=== PATIENT | male | born 1965 | race Hispanic/Latino ===

== ENCOUNTER 2019-09-04 10:30 | Inpatient (IN) | payer BC ==
--- NOTE | 2019-09-04 11:14 | CT ---
CT BRAIN WITHOUT CONTRAST: HISTORY: Headache FINDINGS: No evidence of acute infarct, hemorrhage, midline shift or abnormal extra-axial fluid collections is seen. The ventricular size is appropriate and the basilar cisterns are patent. The bony calvarium is intact. The visualized paranasal sinuses and mastoid air cells are well aerated. IMPRESSION: No CT evidence of acute intracranial process.
[2019-09-04] MEDS ORDERED: Morphine 4 MG/ML VIAL ONE (11:19)
[2019-09-04] MEDS ORDERED: Ketorolac Tromethamine 30 MG/ML VIAL ONE (11:19)
--- NOTE | 2019-09-04 11:19 | CT ---
CT CERVICAL SPINE WITH CORONAL AND SAGITTAL REFORMATIONS AND NO IV CONTRAST: HISTORY: neck pain FINDINGS: Mild degenerative changes are present. There is loss of cervical lordosis with straightening of the cervical spine. No fracture, subluxation or facet malalignment is identified. No prevertebral soft tissue swelling is apparent. The visualized lung apices are unremarkable. IMPRESSION: No CT evidence for fracture or subluxation.
[2019-09-04 11:36] LABS: #Basophils 0.1 thou/uL (0.0-0.2); #Monocytes 0.7 thou/uL (0.11-0.59); #Neutrophils 11.7 thou/uL (1.40-6.50); %Basophils 0.5 % (0.0-1.0); %Eosinophils 0.3 % (0.0-10.0); %Lymphocytes 7.4 % (21.0-51.0); %Monocytes 4.9 % (0.0-10.0); Hemoglobin 15.4 g/dL (14.0-18.0); Mean Corpuscular HGB CONC 34.4 g/dL (32.0-36.0); Mean Corpuscular Hemoglobin 29.2 pg (27.0-31.0); Mean Corpuscular Volume 84.8 fL (78.0-98.0); Mean Platelet Volume 8.4 fL (7.4-10.4); Platelet Count 325 thou/uL (130-400); Red Blood Cell (RBC) Count 5.27 mill/uL (4.70-6.10); White Blood Cell (WBC) Count 13.4 thou/uL (4.8-10.8)
[2019-09-04 12:19] LABS: ALT (SGPT) 10 U/L (8-55); AST (SGOT) 11 U/L (5-34); Albumin 4.3 g/dL (3.5-5.0); Alkaline Phosphatase 152 U/L (40-110); Anion Gap 24 mmol/L (10-20); BUN (Urea Nitrogen) 11 mg/dL (8.4-25.7); Bilirubin, Total 0.3 mg/dL (0.2-1.2); Calc. Creatinine Clearance 0 mL/min (70-130); Calcium 9.4 mg/dL (7.8-10.44); Chloride 102 mmol/L (98-107); Estimated GFR-MDRD 50; Globulin 4.4 g/dL (2.4-3.5); Glucose 473 mg/dL (70-105); Potassium 3.7 mmol/L (3.5-5.1); Protein, Total 8.7 g/dL (6.0-8.3); Sodium 131 mmol/L (136-145)
[2019-09-04 12:30] LABS: Carbon Dioxide 9 mmol/L (22-29)
--- NOTE | 2019-09-04 12:51 | RAD ---
XR Chest 1 View Portable HISTORY: Altered mental status and headache COMPARISON: None FINDINGS: The heart size is normal. The lungs are well expanded without focal areas of consolidation, pneumothorax or pleural effusions. IMPRESSION: No radiographic evidence of acute cardiopulmonary process.
[2019-09-04] MEDS ORDERED: Insulin Regular 300 UNITS/3 ML VIAL ONE (13:02)
[2019-09-04 13:13] LABS: Magnesium 1.8 mg/dL (1.6-2.6); Phosphorus 2.8 mg/dL (2.3-4.7)
[2019-09-04 13:28] LABS: Base Excess-Venous -19.3 mmol/L (-2.0 to 3.0); CO2 Tension (PvCO2) 28.4 mmHg (40.0-50.0); Chloride 104 mmol/L (98-107); Hemoglobin - Calc 15.8 g/dL (14.0-18.0); Potassium 3.8 mmol/L (3.5-5.1); Sodium 129 mmol/L (138-145); T. Carbon Dioxide 9.8 mmol/L (22.0-28.0); vO2 Saturation-calc 76.5 % (60.0-85.0)
[2019-09-04 13:28] LABS: Bacteria/HPF None Seen HPF (None Seen); Bilirubin Negative (Negative); Blood, Urine 1+ (Negative); Clarity Clear (Clear); Glucose, Urine (Dipstick) Greater than 1000 mg/dL (Negative); Leukocyte Negative Leu/uL (Negative); Nitrite Negative (Negative); Protein, Urine (Dipstick) 70 mg/dL (Neg-Trace); Squamous Epithelial 0-3 HPF (0-3); Urobilinogen Normal mg/dL (Less than 2); WBC/HPF 0-3 HPF (0-3)
[2019-09-04] MEDS ORDERED: D5 1/2 NS w/20 mEq KCL 0 ML ONE (14:03)
[2019-09-04] MEDS ORDERED: Insulin Regular 100 units/100 ml in NS IVPB SCH (14:15)
[2019-09-04] MEDS ORDERED: NS 0.9% w/ 20 MEQ KCL 1,000 ML IV SCH (14:15)
[2019-09-04] MEDS ORDERED: CCU Electrolyte Replacement 1 EACH IVPB ONE (14:47)
[2019-09-04] MEDS ORDERED: Sodium Chloride 0.9% 1,000 ML IV PRN ×2 (14:47)
[2019-09-04] MEDS ORDERED: NS 0.9% w/ 20 MEQ KCL 1,000 ML IV PRN ×2 (14:47)
[2019-09-04] MEDS ORDERED: Dextrose 5 %-0.45 % NaCl 1,000 ML IV PRN (14:47)
[2019-09-04] MEDS ORDERED: Morphine 4 MG/ML VIAL SLOW IVP PRN (14:55)
[2019-09-04] MEDS ORDERED: Morphine 2 MG/ML SYRINGE SLOW IVP PRN (14:55)
[2019-09-04] MEDS ORDERED: HUMULIN R 100 UNITS in Sodium Chloride 0.9% 100 ML IVPB SCH (15:00)
[2019-09-04] MEDS ORDERED: Potassium Chloride 40 MEQ in Sodium Chloride 0.9% 250 ML 250 ML IVPB PRN (15:33)
[2019-09-04] MEDS ORDERED: PHOS-NAK 1 PKT PACK PO PRN ×2 (15:33)
[2019-09-04] MEDS ORDERED: Magnesium Oxide 400 MG TAB PO PRN ×2 (15:33)
[2019-09-04] MEDS ORDERED: CCU ELECTROLYTE REPLACEMENT PROTOCOL FS PRN (15:33)
[2019-09-04] MEDS ORDERED: Potassium Phosphate 12 MMOL in Sodium Chloride 0.9% 250 ML 250 ML IV PRN (15:33)
[2019-09-04] MEDS ORDERED: Magnesium 2 GM/50 ML 2 GM in Premix Bag 1 BAG IVPB PRN (15:33)
[2019-09-04] MEDS ORDERED: Potassium Phosphate 9 MMOL in Sodium Chloride 0.9% 100 ML IVPB PRN (15:33)
[2019-09-04] MEDS ORDERED: Potassium Chloride 40 MEQ in Premix Bag 1 BAG IVPB PRN (15:33)
[2019-09-04] MEDS ORDERED: Potassium Phosphate 15 MMOL in Sodium Chloride 0.9% 250 ML 250 ML IV PRN (15:33)
--- NOTE | 2019-09-04 15:54 | HP ---
PRIMARY CARE PROVIDER: Dr. Burgess. CHIEF COMPLAINT: Pain. HISTORY OF PRESENT ILLNESS: This is a 54-year-old male with history of type 2 diabetes, on insulin therapy; dyslipidemia, who presents to the emergency room complaining of pain in his neck. He reports it has been present for approximately one week and was worse last night. He saw Dr. Verde in the outpatient setting. He was concerned about a pinched nerve and prescribed a muscle relaxer and Medrol steroid pack. The patient is taking these medications along with Tylenol for headache and denies any change in his pain. In the emergency room, the patient found to be in DKA. He reports that his blood sugars at home have been in the 300s and he missed his insulin over the past 3 days. He complains of polyuria, dysuria, weakness, and dry mouth. However, these were not his reasons for presentation today. He denies any prior history of hospitalization for diabetes, and states that he did not take his insulin, because sometimes it makes him feel poorly. In the emergency room, the patient found to be in DKA. He received morphine 8 mg IV, Toradol 30 mg IV, 2 L of normal saline, 10 units of subcutaneous insulin, and started on an insulin drip. In addition, he was ordered some more IV fluids, and the hospitalist called for admission. ALLERGIES: NO KNOWN DRUG ALLERGIES. PAST MEDICAL HISTORY: 1. Type 2 diabetes. 2. Dyslipidemia. PAST SURGICAL HISTORY: Left eye. MEDICATIONS: The patient reports taking; 1. Insulin unknown type, 15 units twice a day, however, none over the past 3 days. 2. Metformin extended release two tablets b.i.d. 3. Cholesterol medicine, unknown name. 4. Tylenol as needed. 5. Cyclobenzaprine 10 mg at bedtime. 6. Invokana, unknown dose. 7. Trulicity, unknown dose injected weekly. SOCIAL HISTORY: The patient drinks alcohol 2 to 3 drinks per week, denies any tobacco. Lives with his , who is his surrogate decision maker and he is a full code. FAMILY HISTORY: Mom of heart problems and cancer. REVIEW OF SYSTEMS: Positive for polyuria, dysuria, weakness, and dry mouth. Negative for blurry vision, fevers, chills, nausea, vomiting, abdominal pain, chest pain, or shortness of breath. All remaining review of systems are reviewed and negative. PHYSICAL EXAMINATION: VITAL SIGNS: Blood pressure 144/88, it was 180/102 on admission, pulse 106 (up to 118 on admission), respirations 19, saturation 99% on room air, temp 97.7. GENERAL: Awake, alert, responsive, in no apparent distress. Able to speak in full sentences. HEENT: Pupils are equal and round. Oral mucosa is pink and dry. NECK: Supple. Tenderness to palpation along the right proximal paracervical muscles without any palpable defect, this reproduces symptoms, LYMPHATICS: No palpable cervical or supraclavicular lymphadenopathy. LUNGS: Clear to auscultation bilateral with good air movement. No audible wheezing, rhonchi, or rales. HEART: Normal S1, S2. Regular rate and rhythm. Tachycardic. No audible murmurs. ABDOMEN: Soft. Present bowel sounds. Nontender, nondistended. EXTREMITIES: No clubbing, cyanosis, or edema. SKIN: No visible rashes. NEURO: No gross deficits. PSYCH: Appears euthymic. VASCULAR: 2+ dorsalis pedis pulses. [place] FINDINGS AND TEST RESULTS: CBC; 13.4, 15.4, 44.7, 325. VBG; 7.107, pCO2 of 28, PO2 of 54, bicarbonate 9. Renal panel; 131, 3.7, 102, 9, 11, 1.47, 473. Anion gap 20 Corrected serum sodium = 140 LFTs; T bilirubin 0.3, AST 11, ALT 10, alkaline phosphatase 152, total protein 8.7, albumin 4.3. Urinalysis; present protein, glucose, ketones, 4 to 6 red blood cells, negative for leuk esterase, and nitrites. Beta-hydroxybutyrate 7.7. Chest x-ray personally reviewed; no acute cardiopulmonary process. CT of the C-spine; no CT evidence for fracture or subluxation, mild degenerative changes are present. CT of the brain without contrast negative for acute intracranial process. IMPRESSION: 1. Diabetic ketoacidosis in a patient with known type 2 diabetes, and recent steroid use. 2. Neck pain, based on exam and negative imaging consistent with muscle pain. 3. Dyslipidemia, unknown severity. 4. Acute kidney injury secondary to dehydration associated with diabetic ketoacidosis. 5. Pseudohyponatremia PLAN: 1. Inpatient admission as care will require greater than two midnights to fully stabilize the patient. 2. Continuing IV fluid hydration, insulin drip. Anticipate at least overnight, holding all other medications for diabetes. 3. Obtain an accurate medication list. 4. Manage neck pain. We will start a topical lidocaine patch, and continue both oral and IV pain medication as needed. 5. Monitoring electrolytes per the DKA protocol. 6. Transition to a long-acting insulin when the anion gap is closed, it is currently 20. Obtain name/type of home insulin. 7. Monitor renal function, anticipate with volume repletion that this will resolve. 8. DVT prophylaxis. The patient is ambulatory, we will use pneumatic compression devices. 9. GI prophylaxis not indicated. The patient will be written for carbohydrate consistent diet. 10. Code status is full. 11. The patient is at high risk given age, comorbidities, and current presentation. 12. Reviewed the plan of care with the patient and his family, who demonstrated understanding, no questions or further needs at the end of evaluation. Job ID: [id number] [email or web address]
[2019-09-04 16:23] VITALS: BMI 24.6
[2019-09-04 16:30] LABS: Anion Gap 16 mmol/L (10-20); BUN (Urea Nitrogen) 9 mg/dL (8.4-25.7); Calc. Creatinine Clearance 80 mL/min (70-130); Carbon Dioxide 10 mmol/L (22-29); Chloride 110 mmol/L (98-107); Estimated GFR-MDRD 77; Glucose 315 mg/dL (70-105); Potassium 3.7 mmol/L (3.5-5.1); Sodium 132 mmol/L (136-145)
[2019-09-04] MEDS: D5 1/2 NS w/20 mEq KCL 1,000 ML IV PRN ×2 (19:19→23:26)
[2019-09-04 19:42] LABS: Anion Gap 13 mmol/L (10-20); BUN (Urea Nitrogen) 8 mg/dL (8.4-25.7); Calc. Creatinine Clearance 86 mL/min (70-130); Calcium 8.2 mg/dL (7.8-10.44); Carbon Dioxide 14 mmol/L (22-29); Chloride 112 mmol/L (98-107); Estimated GFR-MDRD 83; Glucose 166 mg/dL (70-105); Sodium 136 mmol/L (136-145)
[2019-09-04] MEDS: Atorvastatin Calcium 10 MG TAB PO SCH (20:42)
[2019-09-04] MEDS: Acetaminophen 325 MG TAB PO PRN (20:42)
[2019-09-04] MEDS: Lidocaine 5% Patch TD SCH (21:14)
[2019-09-04] MEDS: Potassium Chloride 20 MEQ TAB PO PRN (23:27)
[2019-09-04 23:36] LABS: Anion Gap 8 mmol/L (10-20); BUN (Urea Nitrogen) 7 mg/dL (8.4-25.7); Calc. Creatinine Clearance 101 mL/min (70-130); Carbon Dioxide 16 mmol/L (22-29); Chloride 111 mmol/L (98-107); Estimated GFR-MDRD Greater than 90; Glucose 188 mg/dL (70-105); Sodium 132 mmol/L (136-145)
[2019-09-05] MEDS ORDERED: Ondansetron ODT 4 MG TAB PO PRN (01:16)
[2019-09-05] MEDS ORDERED: Ondansetron PF 4 MG/2 ML Vial IVP PRN (01:16)
[2019-09-05 03:40] LABS: #Eosinphils 0.1 thou/uL (0.0-0.7); #Lymphocytes 1.4 thou/uL (1.20-3.40); #Monocytes 0.9 thou/uL (0.11-0.59); #Neutrophils 8.3 thou/uL (1.40-6.50); %Basophils 0.3 % (0.0-1.0); %Eosinophils 0.5 % (0.0-10.0); %Lymphocytes 13.3 % (21.0-51.0); %Monocytes 8.8 % (0.0-10.0); %Neutrophils 77.2 % (42.0-75.0); Hemoglobin 11.4 g/dL (14.0-18.0); Mean Corpuscular HGB CONC 35.9 g/dL (32.0-36.0); Mean Corpuscular Hemoglobin 29.8 pg (27.0-31.0); Mean Corpuscular Volume 83.1 fL (78.0-98.0); Mean Platelet Volume 7.9 fL (7.4-10.4); Platelet Count 270 thou/uL (130-400); RBC Distribution Width 10.9 % (11.5-14.5); Red Blood Cell (RBC) Count 3.83 mill/uL (4.70-6.10); White Blood Cell (WBC) Count 10.7 thou/uL (4.8-10.8)
[2019-09-05 04:02] LABS: Albumin 2.8 g/dL (3.5-5.0); Anion Gap 8 mmol/L (10-20); BUN (Urea Nitrogen) 7 mg/dL (8.4-25.7); BUN/Creatinine Ratio 9.59; Calc. Creatinine Clearance 112 mL/min (70-130); Calcium 7.7 mg/dL (7.8-10.44); Carbon Dioxide 16 mmol/L (22-29); Chloride 111 mmol/L (98-107); Estimated GFR-MDRD Greater than 90; Glucose 146 mg/dL (70-105); Magnesium 1.5 mg/dL (1.6-2.6); Potassium 3.2 mmol/L (3.5-5.1); Sodium 132 mmol/L (136-145)
[2019-09-05] MEDS: Potassium Chloride 20 MEQ TAB PO PRN (04:37)
[2019-09-05] MEDS: D5 1/2 NS w/20 mEq KCL 1,000 ML IV PRN ×2 (04:38→09:39)
[2019-09-05] MEDS: Lidocaine Patch Removal 1 EACH TOP SCH (09:23)
[2019-09-05] MEDS: Acetaminophen 325 MG TAB PO PRN (09:23)
[2019-09-05] MEDS ORDERED: Insulin Glargine 20 UNITS in Pre-Filled Syringe 1 EACH SC SCH (10:15)
[2019-09-05] MEDS ORDERED: Dextrose 50% Abboject 50 ML SYRINGE SLOW IVP PRN (12:23)
[2019-09-05] MEDS ORDERED: HumaLOG 300 UNITS/3 ML VIAL SC PRN (12:23)
[2019-09-05] MEDS ORDERED: Dextrose 5% in Water 1,000 ML IV PRN (12:23)
[2019-09-05] MEDS: Sodium Chloride 0.9% 1,000 ML IV SCH ×4 (12:48→23:35)
--- NOTE | 2019-09-05 13:09 | PDOC.HOSPP ---
- Subjective Encounter Date: 09/05/19 Encounter Time: 11:20 Subjective: feels better, no nausea or abd pain had some urinary freq and urgencyx 3 days, none now family at bedside ( and son) - Objective Vital Signs & Weight: Vital Signs (12 hours) Temp Pulse Ox 09/05/19 11:15 98.4 F 09/05/19 08:00 100 09/05/19 07:21 100.0 F H 09/05/19 05:00 98.4 F Weight Weight 148 lb Most Recent Monitor Data Heart Rate from ECG 112 NIBP 147/83 NIBP BP-Mean 104 Respiration from ECG 20 SpO2 100 I&O: 09/04/19 09/05/19 09/06/19 05:59 06:59 06:59 Intake Total 200 Output Total Balance 200 Result Diagrams: 09/05/19 03:18 09/05/19 03:18 Additional Labs: Accuchecks 09/05/19 09/05/19 09/05/19 12:19 11:03 10:13 POC Glucose 232 H 233 H 266 H 09/05/19 09/05/19 09/05/19 09:16 08:14 07:06 POC Glucose 272 H 287 H 240 H 09/05/19 09/05/19 09/05/19 06:15 05:28 04:08 POC Glucose 185 H 194 H 157 H 09/05/19 09/05/19 09/04/19 03:09 00:09 23:12 POC Glucose 147 H 147 H 188 H 09/04/19 09/04/19 09/04/19 22:05 21:17 20:26 POC Glucose 189 H 196 H 181 H 09/04/19 09/04/19 09/04/19 19:21 18:24 17:08 POC Glucose 154 H 178 H 203 H 09/04/19 14:18 POC Glucose 385 H Hospitalist ROS - Medication Medications: Active Medications Generic Name Dose Route Start Last Admin Trade Name Freq PRN Reason Stop Dose Admin Acetaminophen 650 mg 09/04/19 14:47 09/05/19 09:23 Tylenol PO 650 mg Q6H PRN Administration Headache/Fever/Mild Pain (1-3) Atorvastatin Calcium 10 mg 09/04/19 21:00 09/04/19 20:42 Lipitor PO 10 mg HS [place] Administration Sodium Chloride 1,000 mls @ 200 mls/hr 09/05/19 10:15 09/05/19 12:48 Normal Saline 0.9% IV 1,000 mls .Q5H [place] Administration Lidocaine 1 patch 09/04/19 21:00 09/04/19 21:14 Lidoderm 5% Patch TD 1 patch HS [place] Administration Miscellaneous Medication 1 each 09/05/19 09:00 09/05/19 09:23 Lidocaine Patch Removal TOP 1 each 0900 [place] Administration Morphine Sulfate 2 mg 09/04/19 14:55 09/04/19 16:46 Morphine SLOW IVP 2 mg Q4H PRN Administration Moderate Pain (4-6) - Exam General Appearance: awake alert Eye: PERRL, anicteric sclera ENT: no oropharyngeal lesions, moist mucosa Neck: supple, no JVD Heart: RRR, no murmur Respiratory: no wheezes, no rales Gastrointestinal: soft, non-tender, non-distended, normal bowel sounds Extremities: no cyanosis, no edema Neurological: cranial nerve grossly intact, no focal deficits Psychiatric: normal affect, A&O x 3 Hosp A/P (1) DKA, type 2 Code(s): E11.10 - TYPE 2 DIABETES MELLITUS WITH KETOACIDOSIS WITHOUT COMA Status: Acute Qualifiers: Diabetes mellitus intermediate school teacher insulin use: without intermediate school teacher use (2) Moderate dehydration Code(s): E86.0 - DEHYDRATION Status: Acute (3) DM type 2 (diabetes mellitus, type 2) Status: Chronic Qualifiers: Diabetes mellitus intermediate school teacher insulin use: without intermediate school teacher use (4) Dyslipidemia Code(s): E78.5 - HYPERLIPIDEMIA, UNSPECIFIED Status: Chronic (5) Neck pain Code(s): M54.2 - CERVICALGIA Status: Acute - Plan has right lateral neck pain with no radiation started less than 5 days back. 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
[2019-09-05] MEDS: Ibuprofen 200 MG TAB PO SCH ×2 (14:22→20:47)
[2019-09-05] MEDS: metFORMIN 500 MG TAB PO SCH (17:27)
[2019-09-05] MEDS: HumaLOG 300 UNITS/3 ML VIAL SC PRN (17:28)
[2019-09-05] MEDS: Cyclobenzaprine 10 MG TAB PO SCH (20:47)
[2019-09-05] MEDS: Atorvastatin Calcium 10 MG TAB PO SCH (20:47)
[2019-09-05] MEDS: Lidocaine 5% Patch TD SCH (20:49)
[2019-09-05] MEDS: Enoxaparin Sodium 40 MG/0.4 ML SYRINGE SC SCH (21:49)
[2019-09-05] MEDS: Insulin Glargine 10 UNITS in Pre-Filled Syringe 1 EACH SC SCH (21:49)
[2019-09-06] MEDS: Acetaminophen 325 MG TAB PO PRN (00:42)
[2019-09-06] MEDS: HumaLOG 300 UNITS/3 ML VIAL SC PRN ×2 (04:53→13:15)
[2019-09-06] MEDS: Sodium Chloride 0.9% 1,000 ML IV SCH ×4 (04:54→20:08)
[2019-09-06] MEDS: metFORMIN 500 MG TAB PO SCH ×2 (08:05→16:10)
[2019-09-06] MEDS: Ibuprofen 200 MG TAB PO SCH ×3 (08:05→20:10)
[2019-09-06] MEDS: Insulin Glargine 10 UNITS in Pre-Filled Syringe 1 EACH SC SCH (08:06)
[2019-09-06] MEDS: Lidocaine Patch Removal 1 EACH TOP SCH (08:07)
[2019-09-06] MEDS ORDERED: Insulin Glargine 8 UNITS in Pre-Filled Syringe 1 EACH SC SCH (08:45)
[2019-09-06] MEDS ORDERED: Insulin Glargine 18 UNITS in Pre-Filled Syringe 1 EACH SC SCH (09:00)
[2019-09-06 09:19] LABS: Hemoglobin 12.5 g/dL (14.0-18.0); Mean Corpuscular HGB CONC 35.3 g/dL (32.0-36.0); Mean Corpuscular Hemoglobin 29.5 pg (27.0-31.0); Mean Corpuscular Volume 83.4 fL (78.0-98.0); Mean Platelet Volume 7.9 fL (7.4-10.4); Platelet Count 306 thou/uL (130-400); RBC Distribution Width 11.1 % (11.5-14.5); Red Blood Cell (RBC) Count 4.23 mill/uL (4.70-6.10); White Blood Cell (WBC) Count 12.6 thou/uL (4.8-10.8)
[2019-09-06 09:38] LABS: Anion Gap 14 mmol/L (10-20); BUN (Urea Nitrogen) 4 mg/dL (8.4-25.7); Calc. Creatinine Clearance 130 mL/min (70-130); Carbon Dioxide 19 mmol/L (22-29); Chloride 102 mmol/L (98-107); Estimated GFR-MDRD Greater than 90; Glucose 134 mg/dL (70-105); Sodium 132 mmol/L (136-145)
[2019-09-06 09:51] LABS: Potassium 2.7 mmol/L (3.5-5.1)
[2019-09-06] MEDS ORDERED: Potassium Chloride 20 MEQ TAB PO SCH ×2 (10:15→14:00)
[2019-09-06 10:29] LABS: Lymphocytes 10 % (21-51); MDiff Complete? YES; Monocytes 9 % (0-10); Neutrophil 79 % (42-75); Platelet Morphology Comment Appears Adequate; Reactive Lymphocytes 2 % (0-10)
[2019-09-06] MEDS ORDERED: Potassium Chloride 20 MEQ in Premix Bag 1 BAG IVPB SCH (10:45)
[2019-09-06 16:16] LABS: Bilirubin Negative (Negative); Blood, Urine Negative (Negative); Clarity Clear (Clear); Glucose, Urine (Dipstick) Greater than 1000 mg/dL (Negative); Leukocyte Negative Leu/uL (Negative); Nitrite Negative (Negative); Protein, Urine (Dipstick) 10 mg/dL (Neg-Trace); Urobilinogen 3 mg/dL (Less than 2)
[2019-09-06 16:26] LABS: Anion Gap 14 mmol/L (10-20); BUN (Urea Nitrogen) 5 mg/dL (8.4-25.7); Calc. Creatinine Clearance 130 mL/min (70-130); Calcium 8.3 mg/dL (7.8-10.44); Carbon Dioxide 22 mmol/L (22-29); Chloride 101 mmol/L (98-107); Estimated GFR-MDRD Greater than 90; Glucose 175 mg/dL (70-105); Potassium 3.6 mmol/L (3.5-5.1); Sodium 133 mmol/L (136-145)
[2019-09-06] MEDS: Lidocaine 5% Patch TD SCH (20:09)
[2019-09-06] MEDS: Cyclobenzaprine 10 MG TAB PO SCH (20:10)
[2019-09-06] MEDS: Atorvastatin Calcium 10 MG TAB PO SCH (20:10)
[2019-09-06] MEDS: Enoxaparin Sodium 40 MG/0.4 ML SYRINGE SC SCH (20:11)
[2019-09-06] MEDS: Insulin Glargine 18 UNITS in Pre-Filled Syringe 1 EACH SC SCH (20:13)
--- NOTE | 2019-09-06 20:55 | PDOC.HOSPP ---
- Subjective Encounter Date: 09/06/19 Subjective: The patient complained of neck pain this morning that improved after receiving pain medications. He is tolerating his diet, denies any new complaints, and ambulating without difficulty. - Objective Vital Signs & Weight: Vital Signs (12 hours) Temp Pulse Resp BP Pulse Ox 09/06/19 19:48 98.8 F 110 H 20 135/79 97 09/06/19 16:56 98.0 F 116 H 18 159/89 H 98 09/06/19 11:51 98.2 F 116 H 18 155/85 H 97 Weight Weight 148 lb Most Recent Monitor Data Heart Rate from ECG 116 NIBP 152/89 NIBP BP-Mean 110 Respiration from ECG 24 SpO2 100 I&O: 09/05/19 09/06/19 09/07/19 06:59 06:59 06:59 Intake Total 5230 Output Total 1700 Balance 3530 Result Diagrams: 09/06/19 08:43 09/06/19 16:01 Additional Labs: Accuchecks 09/06/19 09/06/19 09/06/19 19:45 16:57 11:59 POC Glucose 210 H 156 H 229 H 09/05/19 09/04/19 09/04/19 01:16 16:01 10:41 POC Glucose 156 H 259 H 517 H Hospitalist ROS - Medication Medications: Active Medications Generic Name Dose Route Start Last Admin Trade Name Freq PRN Reason Stop Dose Admin Acetaminophen 650 mg 09/04/19 14:47 09/06/19 00:42 Tylenol PO 650 mg Q6H PRN Administration Headache/Fever/Mild Pain (1-3) Atorvastatin Calcium 10 mg 09/04/19 21:00 09/06/19 20:10 Lipitor PO 10 mg HS [place] Administration Cyclobenzaprine HCl 10 mg 09/05/19 21:00 09/06/19 20:10 Flexeril PO 10 mg HS [place] Administration Enoxaparin Sodium 40 mg 09/05/19 21:00 09/06/19 20:11 Lovenox SC 40 mg 2100 [place] Administration Insulin Glargine 18 units/ 0.18 mls @ 0 mls/hr 09/06/19 21:00 09/06/19 20:13 Miscellaneous Medication SC 0.18 mls BID [place] Administration Sodium Chloride 1,000 mls @ 150 mls/hr 09/06/19 14:30 09/06/19 20:08 Normal Saline 0.9% IV 1,000 mls .Q6H40M [place] Administration Ibuprofen 400 mg 09/05/19 15:00 09/06/19 20:10 Motrin PO 400 mg TID [place] Administration Insulin Human Lispro 0 units 09/05/19 12:23 09/06/19 13:15 Humalog SC 6 unit .AGGRESSIVE SLIDING PRN Administration Aggressive Correctional Scale Lidocaine 1 patch 09/04/19 21:00 09/06/19 20:09 Lidoderm 5% Patch TD 1 patch HS [place] Administration Metformin HCl 500 mg 09/05/19 17:00 09/06/19 16:10 Glucophage PO 500 mg BID-WM [place] Administration Miscellaneous Medication 1 each 09/05/19 09:00 09/06/19 08:07 Lidocaine Patch Removal TOP 1 each 0900 [place] Administration Morphine Sulfate 2 mg 09/04/19 14:55 09/04/19 16:46 Morphine SLOW IVP 2 mg Q4H PRN Administration Moderate Pain (4-6) - Exam General Appearance: NAD ENT: normocephalic atraumatic, no oropharyngeal lesions Neck: supple, symmetric, no JVD Heart: RRR (Sinus tachycardia) Respiratory: CTAB, no wheezes, no rales, no ronchi, normal chest expansion Gastrointestinal: soft, non-tender, non-distended, normal bowel sounds Hosp A/P (1) DKA, type 2 Code(s): E11.10 - TYPE 2 DIABETES MELLITUS WITH KETOACIDOSIS WITHOUT COMA Status: Acute Qualifiers: Diabetes mellitus usp insulin use: without usp use (2) Moderate dehydration Code(s): E86.0 - DEHYDRATION Status: Acute (3) Neck pain Code(s): M54.2 - CERVICALGIA Status: Acute (4) Dyslipidemia Code(s): E78.5 - HYPERLIPIDEMIA, UNSPECIFIED Status: Chronic - Plan DKA resolved. The patient is tolerating diet. He was tachycardic this morning and EKG shows sinus tachycardia. His sugar levels remain uncontrolled. Lantus increased to 18 units twice daily. Potassium replaced.
[2019-09-07] MEDS: Sodium Chloride 0.9% 1,000 ML IV SCH ×3 (03:43→10:31)
[2019-09-07] MEDS: Acetaminophen 325 MG TAB PO PRN (03:48)
[2019-09-07 05:42] LABS: Anion Gap 12 mmol/L (10-20); BUN (Urea Nitrogen) Less than 4 mg/dL (8.4-25.7); Band 12 % (5-11); Calc. Creatinine Clearance 135 mL/min (70-130); Calcium 8.1 mg/dL (7.8-10.44); Carbon Dioxide 25 mmol/L (22-29); Chloride 101 mmol/L (98-107); Eosinophils 2 % (0-10); Estimated GFR-MDRD Greater than 90; Glucose 95 mg/dL (70-105); Hemoglobin 11.6 g/dL (14.0-18.0); Lymphocytes 15 % (21-51); MDiff Complete? YES; Mean Corpuscular HGB CONC 34.1 g/dL (32.0-36.0); Mean Corpuscular Hemoglobin 28.5 pg (27.0-31.0); Mean Corpuscular Volume 83.6 fL (78.0-98.0); Mean Platelet Volume 7.7 fL (7.4-10.4); Monocytes 5 % (0-10); Neutrophil 66 % (42-75); Platelet Count 330 thou/uL (130-400); Platelet Morphology Comment Appears Adequate; RBC Distribution Width 11.2 % (11.5-14.5); Red Blood Cell (RBC) Count 4.08 mill/uL (4.70-6.10); Sodium 135 mmol/L (136-145); White Blood Cell (WBC) Count 14.1 thou/uL (4.8-10.8)
[2019-09-07 05:46] LABS: Potassium 2.6 mmol/L (3.5-5.1)
[2019-09-07] MEDS: Potassium Chloride 20 MEQ TAB PO SCH ×2 (06:25→09:42)
[2019-09-07] MEDS: Ibuprofen 200 MG TAB PO SCH ×3 (08:24→20:38)
[2019-09-07] MEDS: metFORMIN 500 MG TAB PO SCH ×2 (08:24→17:09)
[2019-09-07] MEDS: Insulin Glargine 18 UNITS in Pre-Filled Syringe 1 EACH SC SCH ×2 (08:40→20:39)
[2019-09-07] MEDS: Lidocaine Patch Removal 1 EACH TOP SCH (09:42)
[2019-09-07] MEDS: HumaLOG 300 UNITS/3 ML VIAL SC PRN ×2 (11:51→16:22)
[2019-09-07 14:18] LABS: Potassium 3.2 mmol/L (3.5-5.1)
[2019-09-07] MEDS ORDERED: Potassium Chloride 20 MEQ TAB PO SCH ×2 (15:00→18:00)
[2019-09-07] MEDS: Cyclobenzaprine 10 MG TAB PO SCH (20:38)
[2019-09-07] MEDS: Atorvastatin Calcium 10 MG TAB PO SCH (20:38)
[2019-09-07] MEDS: Enoxaparin Sodium 40 MG/0.4 ML SYRINGE SC SCH (20:39)
[2019-09-07] MEDS: Lidocaine 5% Patch TD SCH (20:41)
--- NOTE | 2019-09-07 21:38 | PDOC.HOSPP ---
- Subjective Encounter Date: 09/07/19 Subjective: The patient was seen and examined. He stated that he feels better and would like to go home. - Objective Vital Signs & Weight: Vital Signs (12 hours) Temp Pulse Resp BP Pulse Ox 09/07/19 20:23 98.8 F 111 H 20 138/91 H 97 09/07/19 13:17 98.1 F 105 H 18 133/81 97 Weight Weight 148 lb Most Recent Monitor Data Heart Rate from ECG 116 NIBP 152/89 NIBP BP-Mean 110 Respiration from ECG 24 SpO2 100 I&O: 09/06/19 09/07/19 09/08/19 06:59 06:59 06:59 Intake Total 5230 1800 Output Total 1700 Balance 3530 1800 Result Diagrams: 09/07/19 05:06 09/07/19 13:46 Additional Labs: Accuchecks 09/07/19 09/07/19 09/07/19 20:30 15:58 11:43 POC Glucose 138 H 273 H 229 H 09/07/19 09/06/19 04:27 04:36 POC Glucose 102 174 H Hospitalist ROS - Medication Medications: Active Medications Generic Name Dose Route Start Last Admin Trade Name Freq PRN Reason Stop Dose Admin Acetaminophen 650 mg 09/04/19 14:47 09/07/19 03:48 Tylenol PO 650 mg Q6H PRN Administration Headache/Fever/Mild Pain (1-3) Atorvastatin Calcium 10 mg 09/04/19 21:00 09/07/19 20:38 Lipitor PO 10 mg HS [place] Administration Cyclobenzaprine HCl 10 mg 09/05/19 21:00 09/07/19 20:38 Flexeril PO 10 mg HS [place] Administration Enoxaparin Sodium 40 mg 09/05/19 21:00 09/07/19 20:39 Lovenox SC 40 mg 2100 [place] Administration Insulin Glargine 18 units/ 0.18 mls @ 0 mls/hr 09/06/19 21:00 09/07/19 20:39 Miscellaneous Medication SC 0.18 mls BID [place] Administration Ibuprofen 400 mg 09/05/19 15:00 09/07/19 20:38 Motrin PO 400 mg TID [place] Administration Insulin Human Lispro 0 units 09/05/19 12:23 09/07/19 16:22 Humalog SC 9 unit .AGGRESSIVE SLIDING PRN Administration Aggressive Correctional Scale Lidocaine 1 patch 09/04/19 21:00 09/07/19 20:41 Lidoderm 5% Patch TD 1 patch HS [place] Administration Metformin HCl 500 mg 09/05/19 17:00 09/07/19 17:09 Glucophage PO 500 mg BID-WM [place] Administration Miscellaneous Medication 1 each 09/05/19 09:00 09/07/19 09:42 Lidocaine Patch Removal TOP 1 each 0900 [place] Administration Morphine Sulfate 2 mg 09/04/19 14:55 09/04/19 16:46 Morphine SLOW IVP 2 mg Q4H PRN Administration Moderate Pain (4-6) Hosp A/P (1) DKA, type 2 Code(s): E11.10 - TYPE 2 DIABETES MELLITUS WITH KETOACIDOSIS WITHOUT COMA Status: Acute Qualifiers: Diabetes mellitus fpc insulin use: without termite technician use (2) Moderate dehydration Code(s): E86.0 - DEHYDRATION Status: Acute (3) Neck pain Code(s): M54.2 - CERVICALGIA Status: Acute (4) Dyslipidemia Code(s): E78.5 - HYPERLIPIDEMIA, UNSPECIFIED Status: Chronic - Plan 09/05: DKA resolved. The patient is tolerating diet. He was tachycardic this morning and EKG shows sinus tachycardia. His sugar levels remain uncontrolled. Lantus increased to 18 units twice daily. Potassium replaced. 09/06: DC IV fluids as the patient oral intake is adequate. Replace potassium. We will teach the patient how to use insulin in anticipation for discharge in the morning.
[2019-09-08] MEDS: Acetaminophen 325 MG TAB PO PRN (03:10)
[2019-09-08 06:24] LABS: Hemoglobin 12.3 g/dL (14.0-18.0); Hypochromia SLIGHT = 6-15 cells (100X) (0-5/hpf); Lymphocytes 6 % (21-51); MDiff Complete? YES; Mean Corpuscular HGB CONC 34.7 g/dL (32.0-36.0); Mean Corpuscular Hemoglobin 29.1 pg (27.0-31.0); Mean Corpuscular Volume 83.9 fL (78.0-98.0); Mean Platelet Volume 7.3 fL (7.4-10.4); Monocytes 2 % (0-10); Neutrophil 92 % (42-75); Platelet Count 394 thou/uL (130-400); Platelet Morphology Comment Appears Adequate; RBC Distribution Width 11.2 % (11.5-14.5); Red Blood Cell (RBC) Count 4.23 mill/uL (4.70-6.10); White Blood Cell (WBC) Count 14.5 thou/uL (4.8-10.8)
[2019-09-08 06:32] LABS: Anion Gap 13 mmol/L (10-20); BUN (Urea Nitrogen) 5 mg/dL (8.4-25.7); Calc. Creatinine Clearance 135 mL/min (70-130); Calcium 8.8 mg/dL (7.8-10.44); Carbon Dioxide 26 mmol/L (22-29); Chloride 99 mmol/L (98-107); Estimated GFR-MDRD Greater than 90; Glucose 133 mg/dL (70-105); Sodium 135 mmol/L (136-145)
[2019-09-08 06:36] LABS: Potassium 2.9 mmol/L (3.5-5.1)
[2019-09-08] MEDS: metFORMIN 500 MG TAB PO SCH ×2 (08:08→17:22)
[2019-09-08] MEDS: Ibuprofen 200 MG TAB PO SCH ×3 (08:08→20:47)
[2019-09-08] MEDS: Insulin Glargine 18 UNITS in Pre-Filled Syringe 1 EACH SC SCH ×2 (08:09→20:48)
[2019-09-08] MEDS: Lidocaine Patch Removal 1 EACH TOP SCH (08:10)
[2019-09-08] MEDS: Potassium Chloride 20 MEQ TAB PO SCH ×4 (12:06→17:22)
[2019-09-08] MEDS: HumaLOG 300 UNITS/3 ML VIAL SC PRN ×2 (12:06→17:22)
--- NOTE | 2019-09-08 15:36 | PDOC.HOSPP ---
- Subjective Encounter Date: 09/08/19 Subjective: No new complaint - Objective Vital Signs & Weight: Vital Signs (12 hours) Temp Pulse Resp BP Pulse Ox 09/08/19 08:00 98.6 F 104 H 20 143/89 H 98 Weight Weight 148 lb Most Recent Monitor Data Heart Rate from ECG 116 NIBP 152/89 NIBP BP-Mean 110 Respiration from ECG 24 SpO2 100 I&O: 09/07/19 09/08/19 09/09/19 06:59 06:59 06:59 Intake Total 1800 Balance 1800 Result Diagrams: 09/08/19 05:43 09/08/19 05:43 Additional Labs: Accuchecks 09/08/19 09/08/19 09/07/19 12:03 04:40 20:30 POC Glucose 321 H 75 138 H 09/07/19 15:58 POC Glucose 273 H Hospitalist ROS - Medication Medications: Active Medications Generic Name Dose Route Start Last Admin Trade Name Freq PRN Reason Stop Dose Admin Acetaminophen 650 mg 09/04/19 14:47 09/08/19 03:10 Tylenol PO 650 mg Q6H PRN Administration Headache/Fever/Mild Pain (1-3) Atorvastatin Calcium 10 mg 09/04/19 21:00 09/07/19 20:38 Lipitor PO 10 mg HS [place] Administration Cyclobenzaprine HCl 10 mg 09/05/19 21:00 09/07/19 20:38 Flexeril PO 10 mg HS [place] Administration Enoxaparin Sodium 40 mg 09/05/19 21:00 09/07/19 20:39 Lovenox SC 40 mg 2100 [place] Administration Insulin Glargine 18 units/ 0.18 mls @ 0 mls/hr 09/06/19 21:00 09/08/19 08:09 Miscellaneous Medication SC 0.18 mls BID [place] Administration Ibuprofen 400 mg 09/05/19 15:00 09/08/19 14:39 Motrin PO 400 mg TID [place] Administration Insulin Human Lispro 0 units 09/05/19 12:23 09/08/19 12:06 Humalog SC 11 unit .AGGRESSIVE SLIDING PRN Administration Aggressive [employer]al Scale Lidocaine 1 patch 09/04/19 21:00 09/07/19 20:41 Lidoderm 5% Patch TD 1 patch HS [place] Administration Metformin HCl 500 mg 09/05/19 17:00 09/08/19 08:08 Glucophage PO 500 mg BID-WM [place] Administration Miscellaneous Medication 1 each 09/05/19 09:00 09/08/19 08:10 Lidocaine Patch Removal TOP Not Given 0900 [place] Morphine Sulfate 2 mg 09/04/19 14:55 09/04/19 16:46 Morphine SLOW IVP 2 mg Q4H PRN Administration Moderate Pain (4-6) - Exam General Appearance: NAD Eye: PERRL ENT: normocephalic atraumatic Neck: supple Heart: RRR, no murmur, no gallops, no rubs, normal peripheral pulses Respiratory: CTAB, no wheezes, no rales, no ronchi, normal chest expansion Gastrointestinal: soft, non-tender, non-distended, normal bowel sounds, no palpable masses Hosp A/P (1) DKA, type 2 Code(s): E11.10 - TYPE 2 DIABETES MELLITUS WITH KETOACIDOSIS WITHOUT COMA Status: Acute Qualifiers: Diabetes mellitus ferry terminal supervisor insulin use: without ferry terminal supervisor use (2) Moderate dehydration Code(s): E86.0 - DEHYDRATION Status: Acute (3) Neck pain Code(s): M54.2 - CERVICALGIA Status: Acute (4) Dyslipidemia Code(s): E78.5 - HYPERLIPIDEMIA, UNSPECIFIED Status: Chronic - Plan 09/05: DKA resolved. The patient is tolerating diet. He was tachycardic this morning and EKG shows sinus tachycardia. His sugar levels remain uncontrolled. Lantus increased to 18 units twice daily. Potassium replaced. 09/06: DC IV fluids as the patient oral intake is adequate. Replace potassium. We will teach the patient how to use insulin in anticipation for discharge in the morning. 09/07: Low potassium Replacement ordered Hold lasix recheck BMP in the AM
[2019-09-08] MEDS: Cyclobenzaprine 10 MG TAB PO SCH (20:47)
[2019-09-08] MEDS: Enoxaparin Sodium 40 MG/0.4 ML SYRINGE SC SCH (20:47)
[2019-09-08] MEDS: Atorvastatin Calcium 10 MG TAB PO SCH (20:47)
[2019-09-09] MEDS: Lidocaine 5% Patch TD SCH (01:31)
[2019-09-09] MEDS: Acetaminophen 325 MG TAB PO PRN (01:31)
[2019-09-09 06:16] LABS: Band 7 % (5-11); Eosinophils 5 % (0-10); Hemoglobin 13.1 g/dL (14.0-18.0); Lymphocytes 26 % (21-51); MDiff Complete? YES; Mean Corpuscular HGB CONC 34.8 g/dL (32.0-36.0); Mean Corpuscular Hemoglobin 29.7 pg (27.0-31.0); Mean Corpuscular Volume 85.3 fL (78.0-98.0); Mean Platelet Volume 6.9 fL (7.4-10.4); Monocytes 9 % (0-10); Neutrophil 53 % (42-75); Platelet Count 419 thou/uL (130-400); Platelet Morphology Comment Appears Increased; RBC Distribution Width 11.1 % (11.5-14.5); Red Blood Cell (RBC) Count 4.41 mill/uL (4.70-6.10); White Blood Cell (WBC) Count 12.8 thou/uL (4.8-10.8)
[2019-09-09 06:31] LABS: Anion Gap 12 mmol/L (10-20); BUN (Urea Nitrogen) 7 mg/dL (8.4-25.7); Calc. Creatinine Clearance 114 mL/min (70-130); Calcium 9.6 mg/dL (7.8-10.44); Carbon Dioxide 30 mmol/L (22-29); Chloride 98 mmol/L (98-107); Estimated GFR-MDRD Greater than 90; Glucose 159 mg/dL (70-105); Potassium 4.3 mmol/L (3.5-5.1); Sodium 136 mmol/L (136-145)
[2019-09-09] MEDS: Ibuprofen 200 MG TAB PO SCH (07:58)
[2019-09-09] MEDS: metFORMIN 500 MG TAB PO SCH (07:58)
[2019-09-09] MEDS: Lidocaine Patch Removal 1 EACH TOP SCH (07:59)
[2019-09-09 08:29] VITALS: BP 147/88; TEMP 98.2
[2019-09-09] MEDS: Insulin Glargine 18 UNITS in Pre-Filled Syringe 1 EACH SC SCH (10:38)
--- NOTE | 2019-09-09 23:08 | DIS ---
DATE OF ADMISSION: 09/04/2019 DATE OF DISCHARGE: 09/09/2019 HISTORY OF PRESENT ILLNESS AND HOSPITAL COURSE: The patient is a 54-year-old male with history of diabetes mellitus dependent on insulin, hyperlipidemia, with no prior history of DKA, who presented to the emergency department with complaints of neck pain, abdominal pain, shortness of breath, and increased thirst over the last 48 hours. Initial laboratory studies revealed hyperglycemia with diabetic ketoacidosis. The patient was started on insulin drip, IV fluids, and electrolyte replacement per DKA protocol and admitted to the intensive care unit. His DKA responded to his treatment and was resolved within 24 hours. He was successfully transferred out of ICU and transitioned to subcutaneous insulin. His post ICU stay was complicated by persistent hypokalemia likely due to insulin therapy and diarrhea. The patient was managed with potassium replacement daily until his diarrhea resolved and his potassium level stabilized. DISCHARGE DIAGNOSES: 1. Diabetic ketoacidosis. 2. Dyslipidemia. 3. Neck pain. DISCHARGE MEDICATIONS: 1. Lantus 35 units daily. 2. Pravastatin 40 mg nightly. 3. Metformin 500 mg tablet. The patient is taking 1000 mg p.o. twice daily. DISCHARGE INSTRUCTIONS: The patient was instructed to follow up with his PCP and diabetic Clinic within 1 to 2 weeks. Job ID: [id number]
== END 2019-09-09 12:32 | disposition home or self-care (01) | DRG 638 ==
LOC: ERS 10:30 → IMCU/EMU 13:47 → T4-A 09-05 16:40
PROVIDERS: ADMIT Family Medicine; ATTEND Family Medicine
DX: E11.10 Type 2 diabetes mellitus with ketoacidosis without coma (principal); N17.9 Acute kidney failure, unspecified; E78.5 Hyperlipidemia, unspecified; M54.2 Cervicalgia; E87.6 Hypokalemia; E86.0 Dehydration; Z79.4 Long term (current) use of insulin
CPT/HCPCS: 36415; 36416; 70450; 71045; 72125; 80048; 80053; 80069; 81003; 81015; 82010; 82330; 82803; 83735; 84100; 84484; 85007; 85025; 85027; 90471; 90732; 93005; 93010; G0009; J1650; J1815; J1885; J2270; J3480; J3490

== ENCOUNTER 2021-04-21 11:52 | Inpatient (IN) | payer BC, OTHER ==
[~2021-04-21 11:52] MED LIST: Heparin 1,000 UNITS/ML VIAL ONE
[2021-04-21] MEDS ORDERED: Morphine 4 MG/ML VIAL ONE (12:32)
[2021-04-21] MEDS ORDERED: Piperacillin/Tazobactam 3.375 GM VIAL ONE (12:32)
[2021-04-21 12:38] LABS: #Eosinphils 0.3 thou/uL (0.0-0.7); #Monocytes 0.6 thou/uL (0.11-0.59); #Neutrophils 5.7 thou/uL (1.40-6.50); %Basophils 0.3 % (0.0-1.0); %Eosinophils 3.5 % (0.0-10.0); %Lymphocytes 23.6 % (21.0-51.0); %Monocytes 6.8 % (0.0-10.0); %Neutrophils 65.8 % (42.0-75.0); Hemoglobin 12.8 g/dL (14.0-18.0); Mean Corpuscular HGB CONC 35.6 g/dL (32.0-36.0); Mean Corpuscular Hemoglobin 30.4 pg (27.0-31.0); Mean Corpuscular Volume 85.4 fL (78.0-98.0); Mean Platelet Volume 8.1 fL (7.4-10.4); Platelet Count 252 thou/uL (130-400); RBC Distribution Width 10.5 % (11.5-14.5); Red Blood Cell (RBC) Count 4.22 mill/uL (4.70-6.10); White Blood Cell (WBC) Count 8.7 thou/uL (4.8-10.8)
[2021-04-21] MEDS ORDERED: Acetaminophen 325 MG TAB PO PRN (12:57)
[2021-04-21] MEDS ORDERED: Acetaminophen 650 MG Suppository PR PRN (12:57)
[2021-04-21] MEDS ORDERED: HYDROcodone/Acetaminophen 5/325 mg Tablet PO PRN ×3 (12:57→17:32)
[2021-04-21] MEDS ORDERED: Ondansetron PF 4 MG/2 ML Vial IVP PRN (12:57)
[2021-04-21] MEDS ORDERED: Ondansetron ODT 4 MG TAB PO PRN (12:57)
[2021-04-21 12:59] LABS: ALT (SGPT) 10 U/L (8-55); AST (SGOT) 12 U/L (5-34); Albumin 3.7 g/dL (3.5-5.0); Alkaline Phosphatase 128 U/L (40-110); Anion Gap 17 mmol/L (10-20); BUN (Urea Nitrogen) 14 mg/dL (8.4-25.7); Bilirubin, Total 0.3 mg/dL (0.2-1.2); Calc. Creatinine Clearance 0 mL/min (70-130); Calcium 8.7 mg/dL (7.8-10.44); Carbon Dioxide 16 mmol/L (22-29); Chloride 98 mmol/L (98-107); Globulin 3.6 g/dL (2.4-3.5); Glucose 438 mg/dL (70-105); Potassium 4.2 mmol/L (3.5-5.1); Protein, Total 7.3 g/dL (6.0-8.3); Sodium 127 mmol/L (136-145)
[2021-04-21] MEDS ORDERED: Boostrix 0.5 ML (Tdap) VIAL ONE (13:22)
[2021-04-21] MEDS ORDERED: Vancomycin 1 GM/200 ML BAG ONE (13:32)
[2021-04-21] MEDS ORDERED: Dextrose 50% Abboject 50 ML SYRINGE SLOW IVP PRN (15:05)
[2021-04-21] MEDS ORDERED: Dextrose 5% in Water 1,000 ML IV PRN (15:05)
[2021-04-21 15:23] LABS: Hemoglobin A1c Greater than 14.0 % (4.0-6.0)
[2021-04-21] MEDS ORDERED: Insulin Regular 300 UNITS/3 ML VIAL ONE (15:32)
[2021-04-21] MEDS ORDERED: Fentanyl 100 MCG/2 ML VIAL ONE (15:39)
[2021-04-21] MEDS ORDERED: EPINEPHrine 1 MG/ML AMP ONE (15:51)
[2021-04-21] MEDS ORDERED: Lidocaine 1% (PF) 30 ML VIAL ONE (15:51)
[2021-04-21] MEDS ORDERED: Bupivacaine 0.25% HCL 30 ML VIAL ONE (15:51)
[2021-04-21 15:56] LABS: SARS-CoV-2 NAA Rapid Test Not Detected (NotDetected)
[2021-04-21] MEDS ORDERED: Ketorolac Tromethamine 30 MG/ML VIAL ONE (16:19)
[2021-04-21] MEDS ORDERED: PROPOFOL 200 MG/20 ML VIAL ONE (16:19)
[2021-04-21] MEDS ORDERED: Ondansetron PF 4 MG/2 ML Vial ONE (16:19)
[2021-04-21] MEDS ORDERED: Succinylcholine 200 MG/10 ml SYRINGE FS ONE (16:19)
[2021-04-21] MEDS ORDERED: PHENYLEPHRINE-NS 100 MCG/ML 10 ML SYRINGE ONE (16:19)
[2021-04-21] MEDS ORDERED: Neomycin-Polymyxin 1 ML AMP ONE (16:29)
[2021-04-21] MEDS ORDERED: Ondansetron HCl/PF 4 MG/2 ML Vial IVP PRN (17:16)
[2021-04-21] MEDS ORDERED: Promethazine HCl 25 MG/ML VIAL IM PRN (17:16)
[2021-04-21] MEDS ORDERED: Promethazine HCl 25 MG/ML VIAL IVPB PRN (17:16)
[2021-04-21] MEDS ORDERED: Morphine 4 MG/ML VIAL SLOW IVP PRN (17:31)
[2021-04-21] MEDS ORDERED: Piperacillin/Tazobactam 3.375 GM in Sodium Chloride 0.9% 100 ML IVPB SCH (18:00)
[2021-04-21] MEDS: HYDROcodone/Acetaminophen 5/325 mg Tablet PO PRN ×2 (20:29→20:43)
[2021-04-21] MEDS: Lantus 1000 UNITS/10 ML VIAL SC SCH (21:53)
[2021-04-22] MEDS: Vancomycin 1 GM in Premix Bag 1 BAG IVPB SCH ×2 (03:28→17:29)
[2021-04-22] MEDS: HYDROcodone/Acetaminophen 5/325 mg Tablet PO PRN ×3 (03:41→20:34)
[2021-04-22 04:19] LABS: Anion Gap 13 mmol/L (10-20); BUN (Urea Nitrogen) 11 mg/dL (8.4-25.7); Calc. Creatinine Clearance 0 mL/min (70-130); Calcium 8.2 mg/dL (7.8-10.44); Carbon Dioxide 21 mmol/L (22-29); Chloride 102 mmol/L (98-107); Glucose 308 mg/dL (70-105); Potassium 3.8 mmol/L (3.5-5.1); Sodium 132 mmol/L (136-145)
[2021-04-22] MEDS: Piperacillin/Tazobactam 3.375 GM in Sodium Chloride 0.9% 100 ML IVPB SCH ×3 (04:38→20:35)
[2021-04-22 05:01] VITALS: BMI 27.9
[2021-04-22] MEDS: HumaLOG 300 UNITS/3 ML VIAL SC PRN ×3 (06:00→20:43)
[2021-04-22] MEDS: glyBURIDE 5 MG TAB PO SCH (08:39)
[2021-04-22] MEDS: metFORMIN 500 MG TAB PO SCH ×2 (08:39→17:30)
[2021-04-22] MEDS: Saccharomyces boulardii 250 MG CAP PO SCH (08:39)
[2021-04-22] MEDS ORDERED: FLU VACC QS2021-22(6MOS UP)/PF 60 MCG/0.5 ML SYRINGE IM ONE (09:00)
[2021-04-22] MEDS ORDERED: Lantus 1000 UNITS/10 ML VIAL SC SCH (09:00)
[2021-04-22] MEDS: Lantus 1000 UNITS/10 ML VIAL SC SCH (20:35)
[2021-04-23 01:46] LABS: #Eosinphils 0.4 thou/uL (0.0-0.7); #Lymphocytes 3.2 thou/uL (1.20-3.40); #Monocytes 0.7 thou/uL (0.11-0.59); #Neutrophils 3.6 thou/uL (1.40-6.50); %Basophils 0.4 % (0.0-1.0); %Eosinophils 4.7 % (0.0-10.0); %Monocytes 9.1 % (0.0-10.0); %Neutrophils 45.7 % (42.0-75.0); Hemoglobin 11.4 g/dL (14.0-18.0); Mean Corpuscular HGB CONC 34.9 g/dL (32.0-36.0); Mean Corpuscular Volume 85.9 fL (78.0-98.0); Mean Platelet Volume 7.6 fL (7.4-10.4); Platelet Count 308 thou/uL (130-400); RBC Distribution Width 10.5 % (11.5-14.5); Red Blood Cell (RBC) Count 3.79 mill/uL (4.70-6.10); White Blood Cell (WBC) Count 7.9 thou/uL (4.8-10.8)
[2021-04-23 01:50] LABS: Vancomycin, Trough 6.8 ug/mL
[2021-04-23 02:36] LABS: Anion Gap 13 mmol/L (10-20); BUN (Urea Nitrogen) 8 mg/dL (8.4-25.7); Calc. Creatinine Clearance 124 mL/min (70-130); Carbon Dioxide 28 mmol/L (22-29); Chloride 102 mmol/L (98-107); Glucose 82 mg/dL (70-105); Potassium 3.7 mmol/L (3.5-5.1); Sodium 139 mmol/L (136-145)
[2021-04-23] MEDS: Vancomycin 1 GM in Premix Bag 1 BAG IVPB SCH ×4 (02:36→18:47)
[2021-04-23] MEDS: Piperacillin/Tazobactam 3.375 GM in Sodium Chloride 0.9% 100 ML IVPB SCH ×3 (03:59→20:12)
[2021-04-23] MEDS: metFORMIN 500 MG TAB PO SCH ×2 (10:39→18:47)
[2021-04-23] MEDS: glyBURIDE 5 MG TAB PO SCH (10:39)
[2021-04-23] MEDS: Saccharomyces boulardii 250 MG CAP PO SCH (10:40)
[2021-04-23] MEDS: HumaLOG 300 UNITS/3 ML VIAL SC PRN ×2 (12:12→20:14)
[2021-04-23] MEDS ORDERED: Vancomycin 1 GM in Premix Bag 1 BAG IVPB SCH (14:00)
[2021-04-23] MEDS: Senokot S 8.6-50 MG TAB PO SCH (20:12)
[2021-04-23] MEDS: Polyethylene Glycol 3350 17 GM Packet PO SCH (20:19)
[2021-04-23] MEDS ORDERED: Lantus 1000 UNITS/10 ML VIAL SC SCH (21:00)
[2021-04-24] MEDS: Vancomycin 1 GM in Premix Bag 1 BAG IVPB SCH (02:20)
[2021-04-24] MEDS ORDERED: Vancomycin HCl 1.25 GM in Sodium Chloride 0.9% 250 ML 250 ML IVPB SCH (04:00)
[2021-04-24] MEDS: Piperacillin/Tazobactam 3.375 GM in Sodium Chloride 0.9% 100 ML IVPB SCH ×2 (05:45→13:25)
[2021-04-24] MEDS: Saccharomyces boulardii 250 MG CAP PO SCH (08:06)
[2021-04-24] MEDS: Senokot S 8.6-50 MG TAB PO SCH ×2 (08:06→22:06)
[2021-04-24] MEDS: glyBURIDE 5 MG TAB PO SCH (08:06)
[2021-04-24] MEDS: metFORMIN 500 MG TAB PO SCH ×2 (08:06→18:26)
[2021-04-24] MEDS ORDERED: Milk Of Magnesia 30 ML UDCUP PO PRN (09:14)
[2021-04-24] MEDS ORDERED: Lantus 1000 UNITS/10 ML VIAL SC SCH (09:14)
[2021-04-24] MEDS ORDERED: Milk Of Magnesia 30 ML UDCUP PO SCH (09:15)
[2021-04-24] MEDS: HumaLOG 300 UNITS/3 ML VIAL SC PRN ×2 (10:24→16:13)
[2021-04-24] MEDS ORDERED: VANCOMYCIN 1.25 GM/250 ML BAG 1.25 GM in Premix Bag 1 BAG IVPB SCH (12:00)
[2021-04-24] MEDS: CEFAZOLIN 2 GM in Sodium Chloride 0.9% 100 ML IVPB SCH ×2 (16:14→22:07)
[2021-04-24] MEDS ORDERED: glyBURIDE 5 MG TAB PO SCH (16:30)
[2021-04-24] MEDS: Polyethylene Glycol 3350 17 GM Packet PO SCH (22:06)
[2021-04-25] MEDS: CEFAZOLIN 2 GM in Sodium Chloride 0.9% 100 ML IVPB SCH (05:32)
[2021-04-25] MEDS: glyBURIDE 5 MG TAB PO SCH (08:12)
[2021-04-25] MEDS: metFORMIN 500 MG TAB PO SCH ×2 (08:12→16:21)
[2021-04-25 08:13] LABS: #Basophils 0.1 thou/uL (0.0-0.2); #Eosinphils 0.4 thou/uL (0.0-0.7); #Monocytes 0.4 thou/uL (0.11-0.59); %Basophils 0.9 % (0.0-1.0); %Eosinophils 6.2 % (0.0-10.0); %Lymphocytes 34.8 % (21.0-51.0); %Monocytes 6.2 % (0.0-10.0); %Neutrophils 51.8 % (42.0-75.0); Hemoglobin 13.1 g/dL (14.0-18.0); Mean Corpuscular HGB CONC 34.8 g/dL (32.0-36.0); Mean Corpuscular Hemoglobin 29.6 pg (27.0-31.0); Mean Corpuscular Volume 85.2 fL (78.0-98.0); Mean Platelet Volume 6.8 fL (7.4-10.4); Platelet Count 404 thou/uL (130-400); RBC Distribution Width 10.6 % (11.5-14.5); Red Blood Cell (RBC) Count 4.41 mill/uL (4.70-6.10); White Blood Cell (WBC) Count 5.8 thou/uL (4.8-10.8)
[2021-04-25] MEDS: Saccharomyces boulardii 250 MG CAP PO SCH (08:13)
[2021-04-25] MEDS: Senokot S 8.6-50 MG TAB PO SCH (08:13)
[2021-04-25 08:42] LABS: Anion Gap 14 mmol/L (10-20); BUN (Urea Nitrogen) 9 mg/dL (8.4-25.7); Calc. Creatinine Clearance 114 mL/min (70-130); Calcium 9.3 mg/dL (7.8-10.44); Carbon Dioxide 25 mmol/L (22-29); Chloride 101 mmol/L (98-107); Glucose 215 mg/dL (70-105); Potassium 4.2 mmol/L (3.5-5.1); Sodium 136 mmol/L (136-145)
[2021-04-25] MEDS: HumaLOG 300 UNITS/3 ML VIAL SC PRN ×3 (08:49→15:43)
[2021-04-25] MEDS: ceFAZolin Sodium/D5W 2 GM in Premix Bag 1 BAG IVPB SCH ×2 (14:06→21:16)
[2021-04-25] MEDS ORDERED: Lantus 1000 UNITS/10 ML VIAL SC SCH (21:00)
[2021-04-26] MEDS: HumaLOG 300 UNITS/3 ML VIAL SC PRN ×2 (04:13→17:18)
[2021-04-26] MEDS: ceFAZolin Sodium/D5W 2 GM in Premix Bag 1 BAG IVPB SCH ×3 (06:18→21:30)
[2021-04-26] MEDS: Saccharomyces boulardii 250 MG CAP PO SCH (07:42)
[2021-04-26] MEDS: glyBURIDE 5 MG TAB PO SCH (07:42)
[2021-04-26] MEDS: Polyethylene Glycol 3350 17 GM Packet PO SCH (07:55)
[2021-04-26] MEDS ORDERED: HumaLOG 300 UNITS/3 ML VIAL SC PRN (08:18)
[2021-04-26] MEDS: metFORMIN 500 MG TAB PO SCH ×2 (09:17→17:17)
[2021-04-26] MEDS: Lantus 1000 UNITS/10 ML VIAL SC SCH (21:30)
[2021-04-27] MEDS: ceFAZolin Sodium/D5W 2 GM in Premix Bag 1 BAG IVPB SCH ×3 (06:13→21:09)
[2021-04-27] MEDS: Saccharomyces boulardii 250 MG CAP PO SCH (09:02)
[2021-04-27] MEDS: glyBURIDE 5 MG TAB PO SCH (09:02)
[2021-04-27] MEDS: metFORMIN 500 MG TAB PO SCH ×2 (09:02→16:31)
[2021-04-27] MEDS: Polyethylene Glycol 3350 17 GM Packet PO SCH (09:03)
[2021-04-27] MEDS: HumaLOG 300 UNITS/3 ML VIAL SC PRN ×3 (09:07→23:43)
[2021-04-27] MEDS: Lantus 1000 UNITS/10 ML VIAL SC SCH (21:10)
[2021-04-28] MEDS: ceFAZolin Sodium/D5W 2 GM in Premix Bag 1 BAG IVPB SCH ×3 (05:17→21:57)
[2021-04-28 05:37] LABS: #Basophils 0.1 thou/uL (0.0-0.2); #Eosinphils 0.5 thou/uL (0.0-0.7); #Lymphocytes 3.3 thou/uL (1.20-3.40); #Monocytes 0.5 thou/uL (0.11-0.59); #Neutrophils 3.4 thou/uL (1.40-6.50); %Basophils 1.1 % (0.0-1.0); %Eosinophils 5.9 % (0.0-10.0); %Lymphocytes 42.8 % (21.0-51.0); %Monocytes 6.5 % (0.0-10.0); %Neutrophils 43.8 % (42.0-75.0); Hemoglobin 13.3 g/dL (14.0-18.0); Mean Corpuscular HGB CONC 35.2 g/dL (32.0-36.0); Mean Corpuscular Hemoglobin 30.2 pg (27.0-31.0); Mean Corpuscular Volume 85.9 fL (78.0-98.0); Platelet Count 386 thou/uL (130-400); RBC Distribution Width 10.7 % (11.5-14.5); Red Blood Cell (RBC) Count 4.38 mill/uL (4.70-6.10); White Blood Cell (WBC) Count 7.7 thou/uL (4.8-10.8)
[2021-04-28 05:55] LABS: Anion Gap 13 mmol/L (10-20); BUN (Urea Nitrogen) 15 mg/dL (8.4-25.7); Calc. Creatinine Clearance 118 mL/min (70-130); Calcium 9.7 mg/dL (7.8-10.44); Carbon Dioxide 29 mmol/L (22-29); Chloride 101 mmol/L (98-107); Glucose 114 mg/dL (70-105); Potassium 4.5 mmol/L (3.5-5.1); Sodium 138 mmol/L (136-145)
[2021-04-28] MEDS: glyBURIDE 5 MG TAB PO SCH (08:17)
[2021-04-28] MEDS: metFORMIN 500 MG TAB PO SCH ×2 (08:17→16:00)
[2021-04-28] MEDS: Polyethylene Glycol 3350 17 GM Packet PO SCH (08:17)
[2021-04-28] MEDS: Saccharomyces boulardii 250 MG CAP PO SCH (08:18)
[2021-04-28] MEDS: HumaLOG 300 UNITS/3 ML VIAL SC PRN ×3 (12:03→23:50)
[2021-04-28] MEDS: Lantus 1000 UNITS/10 ML VIAL SC SCH (20:21)
[2021-04-29 00:15] LABS: SARS-CoV-2 PCR by NAA Not Detected (NotDetected)
[2021-04-29] MEDS: ceFAZolin Sodium/D5W 2 GM in Premix Bag 1 BAG IVPB SCH ×3 (05:24→22:25)
[2021-04-29] MEDS: Saccharomyces boulardii 250 MG CAP PO SCH (08:59)
[2021-04-29] MEDS: glyBURIDE 5 MG TAB PO SCH (08:59)
[2021-04-29] MEDS: metFORMIN 500 MG TAB PO SCH ×2 (08:59→18:29)
[2021-04-29] MEDS: Polyethylene Glycol 3350 17 GM Packet PO SCH (09:02)
[2021-04-29] MEDS: HumaLOG 300 UNITS/3 ML VIAL SC PRN ×2 (10:53→20:40)
[2021-04-29] MEDS: Lantus 1000 UNITS/10 ML VIAL SC SCH (20:36)
[2021-04-30] MEDS: ceFAZolin Sodium/D5W 2 GM in Premix Bag 1 BAG IVPB SCH ×3 (05:32→21:13)
[2021-04-30] MEDS: HumaLOG 300 UNITS/3 ML VIAL SC PRN (06:23)
[2021-04-30] MEDS: Saccharomyces boulardii 250 MG CAP PO SCH (08:31)
[2021-04-30] MEDS: Polyethylene Glycol 3350 17 GM Packet PO SCH (08:31)
[2021-04-30] MEDS: glyBURIDE 5 MG TAB PO SCH (08:31)
[2021-04-30] MEDS: metFORMIN 500 MG TAB PO SCH ×2 (08:31→16:40)
[2021-04-30] MEDS: Lantus 1000 UNITS/10 ML VIAL SC SCH (21:13)
[2021-05-01] MEDS: ceFAZolin Sodium/D5W 2 GM in Premix Bag 1 BAG IVPB SCH ×2 (05:44→13:50)
[2021-05-01] MEDS: glyBURIDE 5 MG TAB PO SCH (07:29)
[2021-05-01 07:50] VITALS: BP 130/44; TEMP 97.3
[2021-05-01] MEDS: Polyethylene Glycol 3350 17 GM Packet PO SCH (08:43)
[2021-05-01] MEDS: Saccharomyces boulardii 250 MG CAP PO SCH (08:44)
[2021-05-01] MEDS: metFORMIN 500 MG TAB PO SCH ×2 (08:44→17:06)
[2021-05-01] MEDS: HumaLOG 300 UNITS/3 ML VIAL SC PRN (11:17)
== END 2021-05-01 17:37 | disposition home or self-care (01) | DRG 854 ==
LOC: ERS 11:52 → SDC 14:30 → ONC 15:00
PROVIDERS: ADMIT Family Medicine; ATTEND Internal Medicine
PROC: 0JBK0ZZ Excision of Left Hand Subcutaneous Tissue and Fascia, Open Approach (ICD-10-PCS; principal; 2021-04-21)
PROC: 02HV33Z Insertion of Infusion Device into Superior Vena Cava, Percutaneous Approach (ICD-10-PCS; 2021-04-25)
PROC: B548ZZA Ultrasonography of Superior Vena Cava, Guidance (ICD-10-PCS; 2021-04-25)
DX: A41.01 Sepsis due to Methicillin susceptible Staphylococcus aureus (principal); L03.114 Cellulitis of left upper limb; L02.512 Cutaneous abscess of left hand; E87.1 Hypo-osmolality and hyponatremia; E87.2 Acidosis; Z20.822 Contact with and (suspected) exposure to COVID-19; E11.65 Type 2 diabetes mellitus with hyperglycemia; D50.9 Iron deficiency anemia, unspecified; E11.628 Type 2 diabetes mellitus with other skin complications; E78.5 Hyperlipidemia, unspecified; K59.00 Constipation, unspecified; Z98.41 Cataract extraction status, right eye; Z79.84 Long term (current) use of oral hypoglycemic drugs; Z79.4 Long term (current) use of insulin; Z79.899 Other long term (current) drug therapy
CPT/HCPCS: 36415; 36416; 36569; 80048; 80053; 80202; 83036; 85025; 87040; 87070; 87076; 87077; 87149; 87186; 87205; 90471; 90686; 90715; 94760; 96365; 96367; 96375; C1751; G0008; J0171; J0690; J1644; J1815; J1885; J2001; J2270; J2405; J2543; J2704; J3010; J3370; J3490; J7050; S0020; U0002; U0003; U0005